=== PATIENT | female | born 1970 | race American Indian/Alaskan Native ===

== ENCOUNTER 2016-02-18 14:29 | Emergency (ER) | payer SELFPAY ==
[2016-02-18 15:10] VITALS: BP 136/74
--- NOTE | 2016-02-18 15:55 | Emergency Department Report ---
Chief Complaint: Chest Pain Stated Complaint: CHEST PAIN Time Seen by Provider: 02/18/16 15:50 - HPI History of Present Illness: Patient reports chest pain and left arm pain that started after moving furniture in the house two days ago. She also c/o intermittent headaches for over a week. LMP 02/06/16 - ROS Review of Systems: all other systems are unremarkable except for documentation in HPI - Exam Vital Signs: Vital Signs 02/18/16 15:05 Temperature 98.0 F Pulse Rate 84 Respiratory 18 Rate Blood Pressure 136/74 O2 Sat by Pulse 99 Oximetry Physical Exam: Gen: Obese, NAD Cardio: heart sounds present S1-S2, no murmurs, gallops or ectopy Resp: even and unlabored, lungs CTA [place], no wheezing, rales or rhonchi MSE screening note: Focused history and physical exam performed. Due to findings the following was ordered: laboratory and radiology studies ordered ED Disposition for MSE Condition: Stable
[2016-02-18 16:28] LABS: Eosinophils % (Auto) 1.8 % (0.0-4.3); Hematocrit 43.1 % (30.3-42.9); Hemoglobin 14.4 gm/dl (10.1-14.3); Mean Corpuscular HGB Conc 34 % (30-34); Mean Corpuscular Hemoglobin 29 pg (28-32); Mean Corpuscular Volume 87 fl (79-97); Platelet Count 222 K/mm3 (140-440); Red Blood Count 4.98 M/mm3 (3.65-5.03); Red Cell Distribution Width 14.9 % (13.2-15.2); White Blood Count 8.2 K/mm3 (4.5-11.0)
[2016-02-18 16:36] LABS: INR 0.96 (0.87-1.13)
[2016-02-18 17:08] LABS: Alanine Aminotransferase 35 units/L (7-56); Albumin 3.7 g/dL (3.9-5); Albumin/Globulin Ratio 0.9 %; Alkaline Phosphatase 82 units/L (35-129); Anion Gap 18 mmol/L; BUN/Creatinine Ratio 12.85; Bilirubin,Total 0.6 mg/dL (0.1-1.2); Blood Urea Nitrogen 9 mg/dL (7-17); Calcium 9.1 mg/dL (8.4-10.2); Carbon Dioxide 23 mmol/L (22-30); Chloride 98.5 mmol/L (98-107); Creatine Kinase 188 units/L (30-135); Glucose 302 mg/dL (65-100); Sodium 135 mmol/L (137-145); Total Protein 7.6 g/dL (6.3-8.2)
[2016-02-18 17:46] LABS: Creatine Kinase MB 1.9 ng/mL (0.0-4.0)
--- NOTE | 2016-02-20 19:23 | ED Elopement Review ---
ED Pt Elopement review - Results review Lab results: Laboratory Tests 02/18/16 02/18/16 02/18/16 16:10 16:10 16:10 WBC 8.2 RBC 4.98 Hgb 14.4 H Hct 43.1 H MCV 87 MCH 29 MCHC 34 RDW 14.9 Plt Count 222 Lymph % (Auto) 32.4 [place] % (Auto) 7.6 H Eos % (Auto) 1.8 Baso % (Auto) 1.0 Lymph # 2.7 [place] # 0.6 Eos # 0.2 Baso # 0.1 Seg Neutrophils % 57.2 Seg Neutrophils # 4.7 PT 12.7 INR 0.96 APTT 20.0 L Sodium 135 L Potassium 4.0 Chloride 98.5 Carbon Dioxide 23 Anion Gap 18 BUN 9 Creatinine 0.7 Estimated GFR > 60 BUN/Creatinine Ratio 12.85 Glucose 302 H Calcium 9.1 Total Bilirubin 0.6 AST 24 ALT 35 Alkaline Phosphatase 82 Total Creatine Kinase 188 H CK-MB (CK-2) 1.9 CK-MB (CK-2) Rel Index 1.0 Troponin T < 0.010 Total Protein 7.6 Albumin 3.7 L Albumin/Globulin Ratio 0.9 - Call Back decision Pt Call Back Decision: Pt to F/U with PMD (elevated glucose (no documentation of dM) f/u)
== END 2016-02-18 20:26 | disposition left against medical advice (07) ==
LOC: ED 14:29
DX: R07.9 Chest pain, unspecified (principal); M79.602 Pain in left arm; R51 Headache; Z53.21 Procedure and treatment not carried out due to patient leaving prior to being seen by health care provider
CPT/HCPCS: 36415; 80053; 82550; 82553; 84484; 85025; 85610; 85730; 93005; 93010